=== PATIENT | female | born 1975 | race Caucasian/White ===

== ENCOUNTER 2022-06-02 04:09 | Emergency (ER) | payer OTHER, BC, SELFPAY ==
--- NOTE | ~2022-06-02 | XR_ITS ---
EXAMINATION: XR foot RT min 3V DATE: 06/02/2022 04:35 INDICATION: Right foot pain TECHNIQUE: Dorsoplantar, lateral, and 2 oblique views of the right foot were obtained. COMPARISON: None. FINDINGS: No fracture, dislocation, or subluxation. The bones, soft tissues, and joint spaces are nor mal. IMPRESSION: 1. No acute osseous abnormality. Reviewed, dictated and finalized at location A.
[2022-06-02 04:14] VITALS: BP 123/77; PULSE 82; RESP 14; TEMP 36.7; O2SAT 100
[2022-06-02 04:20] VITALS: BP 104/73; PULSE 76; RESP 16; O2SAT 100
--- NOTE | 2022-06-02 04:30 | ED.GENADULT ---
HPI - General Adult General Chief complaint: Extremity Injury, Lower Stated complaint: R foot pain Time Seen by Provider: 06/02/22 04:23 History of Present Illness HPI narrative: Patient 47-year-old female who presents the emergency department with chief complaint of right foot pain. Patient reports that last week and she hit her foot with a door and reports pain on the medial aspect of her right foot at the proximal metatarsal patient reports she has pain that is worse with ambulation and improved with rest patient reports has been taking low doses of naproxen without relief Related Data Allergies Allergy/AdvReac Type Severity Reaction Status Date / Time No Known Allergies Allergy Verified 06/02/22 04:27 Review of Systems Review of Systems: A 10 system review of systems was completed on the patient and is negative except for what is stated in the HPI. Nursing and ancillary documentation was reviewed. PMFSH Family History Family History Father Hypertension Social History Social History Smoking status: Former smoker Smoking end date: 03/10/07 Alcohol intake: current Exam Narrative: GENERAL: Well-appearing, well-nourished, and in no acute distress. HEAD: Normocephalic, atraumatic. EYES: PERRLA and EOMI. ENT: Nares clear, no rhinorrhea or epistaxis. Mucous membranes moist. NECK: Supple. CHEST: Clear to auscultation. No respiratory distress. HEART: Regular rate and rhythm. No murmur heard. Normal peripheral pulses. ABDOMEN: Soft, nontender, nondistended, normal active bowel sounds. EXTREMITIES: Normal range of motion. No edema. There is tenderness to palpation at the proximal metatarsal at the first digit on the right foot. There is no laceration there is no deformity and no contusion. SKIN: Warm, dry, no rash. NEURO: No focal deficits. Alert and oriented x3. PSYCH: Normal mood and affect. Course Vital Signs Vital signs: Vital Signs Temperature 36.7 C 06/02/22 04:14 Pulse Rate 82 06/02/22 04:14 Respiratory Rate 14 06/02/22 04:14 Blood Pressure 123/77 06/02/22 04:14 Pulse Oximetry 100 06/02/22 04:14 Oxygen Delivery Room Air 03/26/23 04:14 Temperature 36.6 C 06/02/22 04:35 Pulse Rate 76 06/02/22 04:20 Respiratory Rate 16 06/02/22 04:20 Blood Pressure 104/73 06/02/22 04:20 Pulse Oximetry 100 06/02/22 04:20 Oxygen Delivery Room Air 06/02/22 04:14 Medical Decision Making MDM Narrative Medical decision making narrative: Differential diagnosis includes contusion, fracture, dislocation. Plain film x-rays were ordered of the right foot which showed no evidence of fracture or dislocation. Patient will be placed in a postoperative shoe and will be instructed to follow-up with her primary care provider in the next week Vital Signs Vital Signs: Vital Signs Temperature 36.7 C 06/02/22 04:14 Pulse Rate 82 06/02/22 04:14 Respiratory Rate 14 06/02/22 04:14 Blood Pressure 123/77 06/02/22 04:14 Pulse Oximetry 100 06/02/22 04:14 Oxygen Delivery Room Air 06/02/22 04:14 Temperature 36.6 C 06/02/22 04:35 Pulse Rate 76 06/02/22 04:20 Respiratory Rate 16 06/02/22 04:20 Blood Pressure 104/73 06/02/22 04:20 Pulse Oximetry 100 06/02/22 04:20 Oxygen Delivery Room Air 06/02/22 04:14 Discharge Plan Discharge Clinical Impression: Foot sprain, Contusion of foot, right Patient Disposition: Home, Self-Care Condition: Stable Instructions: Antibiotic Form, Foot Contusion (ED), Foot Sprain (ED) Follow-up/Referrals: PHYSICIAN NOT ON STAFF,NONSTAFF [Non-Staff] - Stand Alone Forms: Work/School Release IP Time of Disposition: 05:34
[2022-06-02 04:35] VITALS: TEMP 36.6
[2022-06-02] MEDS: HYDROcodone/acetaminophen (*CRX) 5-325 MG TABLET 1 TAB PO (04:38)
[2022-06-02 06:19] VITALS: BP 103/71; RESP 16; O2SAT 98
== END 2022-06-02 06:19 | disposition home or self-care (01) ==
PROVIDERS: Emergency Provider Emergency Medicine
DX: S93.601A Unspecified sprain of right foot, initial encounter (principal); S90.31XA Contusion of right foot, initial encounter; Z87.891 Personal history of nicotine dependence; W22.8XXA Striking against or struck by other objects, initial encounter
CPT/HCPCS: 73630; 99283; A9270